=== PATIENT | female | born 1990 | race Caucasian/White ===

== ENCOUNTER 2017-06-01 07:59 | Emergency (ER) | payer MEDICAID ==
[~2017-06-01] VITALS: Ht 160 cm; Wt 61.9 kg
[~2017-06-01 07:59] MED LIST: PREN-385 PO
[2017-06-01 08:05] VITALS: BP 113/70
--- NOTE | 2017-06-01 08:09 | NUR ---
Patient ambulated to bed 7. RN evaluating patient at bedside.
--- NOTE | 2017-06-01 08:12 | NUR ---
26F BIB SELF C/O ALLERGIC REACTION X 2 DAYS; PT STATES " I DON'T KNOW WHAT IT IS, BUT I'VE BEEN HAVING ITCHING ON MY LEGS, ARMS, AND STOMACH. I'VE BEEN TAKING BENADRYL, BUT IT'S NOT HELPING"; RASH NOTED UPPER BL LEGS, BL FOREARMS, AND BL LOWER ABD;NO SWELLING NOTED TO FACE, TONGUE, OR EXTREMITIES; RR ARE EVEN AND UNLABORED; PATIENT STATES PAIN OF 0/10 AT THIS TIME; VSS; PATIENT POSITIONED FOR COMFORT; HOB ELEVATED; BEDRAILS UP X2; BED DOWN. ER MD MADE AWARE OF PT STATUS; ALL NEEDS MET AT THIS TIME; WILL CONTINUE TO MONITOR
--- NOTE | 2017-06-01 08:19 | NUR ---
Dr. Hanson evaluating patient at bedside.
[2017-06-01 08:26] VITALS: BP 113/70
--- NOTE | 2017-06-01 08:26 | NUR ---
Patient discharged with v/s stable. Written and verbal after care instructions given and explained. Patient alert, oriented and verbalized understanding of instructions. Ambulatory with to car. All questions addressed prior to discharge. ID band removed. Patient advised to follow up with PMD. Rx of Prednisone given. Patient educated on indication of medication including possible reaction and side effects. Opportunity to ask questions provided and answered.
== END 2017-06-01 08:26 | disposition home or self-care (01) ==
LOC: MED 07:59
DX: L25.9 Unspecified contact dermatitis, unspecified cause (principal)
CPT/HCPCS: 99283

== ENCOUNTER 2017-06-05 14:31 | Emergency (ER) | payer MEDICAID ==
[~2017-06-05] VITALS: Ht 162.6 cm; Wt 62.2 kg
[2017-06-05 14:57] VITALS: BP 112/58
--- NOTE | 2017-06-05 15:04 | NUR ---
PATIENT PRESENTS TO ED WITH rash to suprapubic area and inner thighs . PT STATES . DENIES N/V/D; SKIN IS PINK/WARM/DRY; AAOX4 WITH EVEN AND STEADY GAIT; LUNGS CLEAR BL; HR EVEN AND REGULAR; PT DENIES ANY FEVER, CP, SOB, OR COUGH AT THIS TIME; PATIENT STATES PAIN OF 0/10 AT THIS TIME; VSS; PATIENT POSITIONED FOR COMFORT; HOB ELEVATED; BEDRAILS UP X2; BED DOWN. ER MD MADE AWARE OF PT STATUS.
[2017-06-05 16:01] VITALS: BP 112/58
--- NOTE | 2017-06-05 16:05 | NUR ---
Patient discharged with v/s stable. Written and verbal after care instructions given and explained to parent/guardian. Parent/Guardian verbalized understanding of instructions. Ambulatory with steady gait. All questions addressed prior to discharge. ID band removed. Parent/Guardian advised to follow up with PMD. Rx of CLARITIN 10MG AND SYNALAR 0.025% given. Parent/Guardian educated on indication of medication including possible reaction and side effects. Opportunity to ask questions provided and answered.
== END 2017-06-05 16:05 | disposition home or self-care (01) ==
LOC: MED 14:31
DX: L25.9 Unspecified contact dermatitis, unspecified cause (principal); Z79.899 Other long term (current) drug therapy
CPT/HCPCS: 99282

== ENCOUNTER 2017-09-11 10:15 | Emergency (ER) | payer MEDICAID ==
[~2017-09-11] VITALS: Ht 160 cm; Wt 62.2 kg
[2017-09-11 10:16] VITALS: BP 142/80
--- NOTE | 2017-09-11 10:24 | NUR ---
Brijesh spaulding in [facility] - 09/11/17 at 1040 by [email or web address] Patient ambulated to bed 03.
[2017-09-11 10:33] VITALS: BP 109/81
--- NOTE | 2017-09-11 10:40 | NUR ---
Patient to bed 07.
--- NOTE | 2017-09-11 10:46 | NUR ---
Note undone in EDM - 09/11/17 at 1049 by [email or web address] 27F BIB SELF PRESENTS TO ER C/O WITH BLURRY VISION x THIS AM. PT DENIES INJURY OR TRAUMA. PT STS VISION IS BLURRY WHEN SEEING CLOSE; PT ALSO REPORTS OF FEELING WEAK WITH NAUSEA; PT DENIES ANY CP, SOB, OR ABD PAIN; PT IS AOX4, WITH STEADY GAIT; RR ARE EVEN AND UNLABORED. ER AWARE OF PT STATUS. NAD. WILL CONTINUE TO MONITOR.
--- NOTE | 2017-09-11 10:46 | NUR ---
27F BIB SELF PRESENTS TO ER C/O WITH BLURRY VISION x THIS AM. PT DENIES INJURY OR TRAUMA. PT STS VISION IS BLURRY WHEN SEEING CLOSE; PT ALSO REPORTS OF FEELING WEAK WITH NAUSEA; PT DENIES ANY CP, SOB, OR ABD PAIN; PT IS AOX4, WITH STEADY GAIT; RR ARE EVEN AND UNLABORED. PT REPORTS OF 2/10 "DULL" NON RADIATING RIGHT MANDAEN HEAD PAIN; ER MD AWARE OF PT STATUS. NAD. WILL CONTINUE TO MONITOR.
[2017-09-11] MEDS ORDERED: KETOROLAC 60 MG/2 ML VIAL IM ONE (11:25)
[2017-09-11 12:25] VITALS: BP 115/80
--- NOTE | 2017-09-11 12:25 | NUR ---
Patient discharged with v/s stable. Written and verbal after care instructions given and explained. Patient alert, oriented and verbalized understanding of instructions. Ambulatory with steady gait. All questions addressed prior to discharge. ID band removed. Patient advised to follow up with PMD. Rx of Motrin and Zofran given. Patient educated on indication of medication including possible reaction and side effects. Opportunity to ask questions provided and answered.
== END 2017-09-11 12:25 | disposition home or self-care (01) ==
LOC: MED 10:15
DX: R51 Headache (principal); H53.8 Other visual disturbances; R11.2 Nausea with vomiting, unspecified
CPT/HCPCS: 81002; 81025; 96372; 99283; J1885

== ENCOUNTER 2022-04-08 22:09 | Emergency (ER) | payer MEDICAID ==
[~2022-04-08] VITALS: Ht 160 cm; Wt 63.5 kg
[2022-04-08 22:40] VITALS: BP 133/71
--- NOTE | 2022-04-08 22:43 | NUR ---
to lobby a/w bed ambulatory
[2022-04-08 23:46] LABS: BASOPHILS # (AUTO) 0.1 K/uL (0.00-0.22); BASOPHILS % (AUTO) 0.8 % (0.0-2.0); EOSINOPHILS # (AUTO) 0.2 K/uL (0-0.4); EOSINOPHILS % (AUTO) 3.2 % (0.0-4.0); HEMATOCRIT 36.7 % (36-48); HEMOGLOBIN 12.5 g/dL (12.0-16.0); LYMPHOCYTES % (AUTO) 30.7 % (20.5-51.1); MEAN CORPUSCULAR HEMOGLOBIN 32 pg (27-31); MEAN CORPUSCULAR HGB CONC 34 g/dL (33-37); MEAN CORPUSCULAR VOLUME 92.4 fL (80-94); MONOCYTES # (AUTO) 0.6 K/uL (0.8-1.0); MONOCYTES % (AUTO) 9.8 % (1.7-9.3); NEUTROPHILS # (AUTO) 3.6 K/uL (1.8-7.7); NEUTROPHILS % (AUTO) 55.5 % (42.2-75.2); PLATELET COUNT (AUTO) 235 K/uL (140-450); RED BLOOD CELL COUNT(AUTO) 3.98 MIL/uL (4.20-5.40); RED CELL DISTRIBUTION WIDTH 12.2 % (11.6-13.7); WHITE BLOOD COUNT (AUTO) 6.5 K/uL (4.8-10.8)
--- NOTE | 2022-04-08 23:56 | NUR ---
PT RETURN FROM CT TO ER LOBBY
[2022-04-09 00:05] LABS: ALBUMIN 4.2 g/dL (3.4-5.0); ANION GAP 9.8 (8-16); CARBON DIOXIDE 28.3 mmol/L (21-32); CREATININE 0.7 mg/dL (0.6-1.3); POTASSIUM 4.1 mmol/L (3.5-5.1); TOTAL BILIRUBIN 0.3 mg/dL (0.0-1.0)
--- NOTE | 2022-04-09 00:32 | NUR ---
PT TAKEN TO BED 1
--- NOTE | 2022-04-09 01:05 | NUR ---
31 Y/O FEMALE BIBS FROM HOME, C/O SHARP RLQ PAIN X3 DAYS. PT STATES THAT PAIN COMES/GOES EVERY FEW MONTHS. PT STATES PAIN IS 9/10, SHARP, AND RADIATES TO BILATERAL UPPER ABD. DENEIS N/V/D. DENIES COUGH, FEVER, SOB, OR CP. A/OX4; UNLABORED BREATHING; AMBULATORY W/O ASSISTANCE. HX: CERVICAL CANCER X5 YRS AGO NKA DENIES MEDS SX: X5
--- NOTE | 2022-04-09 01:27 | NUR ---
SHERITA COLLECTED AND WALKED TO LAB
--- NOTE | 2022-04-09 01:31 | NUR ---
PATEINT SITTNG IN BED. BED LOW AND LOCKED. SIDE RAIL UP FOR SAFETY. ALL NEEDS MET.
[2022-04-09] MEDS ORDERED: CEPH-588 PO (02:34)
[2022-04-09] MEDS ORDERED: HYDR-5080 PO (02:34)
[2022-04-09] MEDS: HYDROcodone/APAP 7.5/325 MG 1 TAB PO ONE (02:57)
[2022-04-09] MEDS: cephALEXin 500 MG CAP PO ONE (02:58)
[2022-04-09 03:01] VITALS: BP 121/64
--- NOTE | 2022-04-09 03:03 | NUR ---
Patient discharged with v/s stable. Written and verbal after care instructions given and explained. Patient alert, oriented and verbalized understanding of instructions. Ambulatory with steady gait. All questions addressed prior to discharge. ID band removed. Patient advised to follow up with PMD. Rx of KEFLEX AND NORCO given. Patient educated on indication of medication including possible reaction and side effects. Opportunity to ask questions provided and answered. vss, a/ox4, unlabored breathing, ambulatory , and calm demeanor.
== END 2022-04-09 03:03 | disposition home or self-care (01) ==
LOC: MED 22:09
DX: R10.9 Unspecified abdominal pain (principal); Z20.822 Contact with and (suspected) exposure to COVID-19; Z79.899 Other long term (current) drug therapy
CPT/HCPCS: 36415; 80053; 81002; 81025; 85025; 99284

== ENCOUNTER 2023-03-31 16:55 | Emergency (ER) | payer MEDICAID, OTHER ==
[~2023-03-31] VITALS: Ht 160 cm; Wt 58.5 kg
[~2023-03-31 16:55] MED LIST changes: +CEPH-588 PO; +HYDR-5080 PO; -PREN-385 PO
[2023-03-31 17:04] VITALS: BP 125/79; PULSE 63; RESP 18; TEMP 98; O2SAT 99
[2023-03-31 17:15] VITALS: O2SAT 99
[2023-03-31 17:46] LABS: BASOPHILS % (AUTO) 0.8 % (0.0-2.0); EOSINOPHILS # (AUTO) 0.1 K/uL (0-0.4); EOSINOPHILS % (AUTO) 2.1 % (0.0-4.0); HEMOGLOBIN 12.5 g/dL (12.0-16.0); LYMPHOCYTES # (AUTO) 1.3 K/uL (2.5-16.5); MEAN CORPUSCULAR HEMOGLOBIN 32 pg (27-31); MEAN CORPUSCULAR HGB CONC 34 g/dL (33-37); MEAN CORPUSCULAR VOLUME 93.3 fL (80-94); MONOCYTES # (AUTO) 0.4 K/uL (0.8-1.0); MONOCYTES % (AUTO) 8.5 % (1.7-9.3); NEUTROPHILS % (AUTO) 61.6 % (42.2-75.2); PLATELET COUNT (AUTO) 247 K/uL (140-450); RED BLOOD CELL COUNT(AUTO) 3.96 MIL/uL (4.20-5.40); RED CELL DISTRIBUTION WIDTH 12.3 % (11.6-13.7); WHITE BLOOD COUNT (AUTO) 4.9 K/uL (4.8-10.8)
[2023-03-31] MEDS ORDERED: KETOROLAC 30 MG/ML VIAL IM ONE (18:00)
[2023-03-31 18:12] LABS: ALBUMIN 4.6 g/dL (3.4-5.0); ANION GAP 14.1 (8-16); ASPARTATE AMINOTRANSFERASE 26 U/L (15-37); CARBON DIOXIDE 27.5 mmol/L (21-32); CHLORIDE 106 mmol/L (98-107); CREATININE 0.7 mg/dL (0.6-1.3); GFR ARICAN-AMERICAN 123 mL/min (>90); GLUCOSE 90 mg/dL (74-106); POTASSIUM 3.6 mmol/L (3.5-5.1); SODIUM SERUM 144 mmol/L (136-145); TOTAL BILIRUBIN 0.5 mg/dL (0.0-1.0); UREA NITROGEN, BLOOD 14 mg/dL (7-18)
[2023-03-31] MEDS ORDERED: ACET-10509 PO (18:35)
[2023-03-31] MEDS ORDERED: CEPH-588 PO (18:47)
[2023-03-31 18:50] LABS: APPEARANCE,URINE CLEAR (CLEAR); BILIRUBIN,URINE NEGATIVE (NEGATIVE); BLOOD, URINE NEGATIVE (NEGATIVE); COLOR,URINE YELLOW (YELLOW); LEUKOCYTE ESTERASE ,URINE NEGATIVE (NEGATIVE); NITRITE, URINE POSITIVE (NEGATIVE); UGLUCOSE NEGATIVE (NEGATIVE)
--- NOTE | 2023-03-31 19:07 | NUR ---
Patient discharged with v/s stable. Written and verbal after care instructions given and explained. Patient alert, oriented and verbalized understanding of instructions. Ambulatory with steady gait. All questions addressed prior to discharge. ID band removed. Patient advised to follow up with PMD. Rx of keflex, tylenol given. Patient educated on indication of medication including possible reaction and side effects. Opportunity to ask questions provided and answered.
== END 2023-03-31 19:05 | disposition home or self-care (01) ==
LOC: MED 16:55
DX: R07.89 Other chest pain (principal); N39.0 Urinary tract infection, site not specified; M54.6 Pain in thoracic spine; Z79.899 Other long term (current) drug therapy
CPT/HCPCS: 36415; 71045; 80053; 81001; 81025; 84484; 85025; 87086; 93005; 96372; 99285; J1885

== ENCOUNTER 2024-03-30 21:00 | Emergency (ER) | payer OTHER ==
[~2024-03-30] VITALS: Ht 160 cm; Wt 59.4 kg
[~2024-03-30 21:00] MED LIST changes: +ACET-10509 PO
[2024-03-30 21:25] VITALS: BP 117/69; PULSE 63; RESP 17; TEMP 97.9; O2SAT 98
[2024-03-30] MEDS ORDERED: HYD2.5O TP (23:01)
[2024-03-30 23:10] VITALS: BP 117/69; PULSE 63; RESP 16; TEMP 97.9; O2SAT 98
== END 2024-03-30 23:10 | disposition home or self-care (01) ==
LOC: MED 21:00
DX: L30.8 Other specified dermatitis (principal); Z79.899 Other long term (current) drug therapy
CPT/HCPCS: 99282

== ENCOUNTER 2024-04-08 20:16 | Emergency (ER) | payer OTHER ==
[~2024-04-08] VITALS: Ht 160 cm; Wt 59.4 kg
[~2024-04-08 20:16] MED LIST changes: +HYD2.5O TP
[2024-04-08 20:55] VITALS: BP 119/70; PULSE 66; RESP 14; TEMP 97.2; O2SAT 99
[2024-04-08] MEDS ORDERED: METH4TAB1 PO (21:06)
[2024-04-08] MEDS ORDERED: FAMO-90 PO (21:06)
[2024-04-08] MEDS ORDERED: CETI10SG1 PO (21:06)
[2024-04-08 21:17] VITALS: BP 119/70; PULSE 66; RESP 14; TEMP 97.2; O2SAT 99
== END 2024-04-08 21:17 | disposition home or self-care (01) ==
LOC: MED 20:16
DX: L50.9 Urticaria, unspecified (principal); Z79.1 Long term (current) use of non-steroidal anti-inflammatories (NSAID); Z79.2 Long term (current) use of antibiotics; Z79.899 Other long term (current) drug therapy
CPT/HCPCS: 81025; 99283